=== PATIENT | female | born 1960 | race Caucasian/White ===

== ENCOUNTER → 2017-10-09 | Day surgery (SDC) | payer OTHER, SELFPAY | PROVIDERS: Visit Provider Nurse Anesthetist, Certified Registered | DX: M51.16 Intervertebral disc disorders with radiculopathy, lumbar region (principal); M70.62 Trochanteric bursitis, left hip; M70.61 Trochanteric bursitis, right hip | CPT/HCPCS: 20610; 95991 ==

== ENCOUNTER → 2017-11-02 15:15 | Day surgery (SDC) | payer OTHER, SELFPAY ==
[2017-11-02 15:58] VITALS: BP 191/78; PULSE 64; RESP 20; TEMP 37.1; O2SAT 96; BMI 23.2
--- NOTE | 2017-11-02 16:05 | HMH.PMPROC ---
- Procedure Date: 11/02/17 Time: 16:05 Anesthesiologist:: Levon Patel MD Complications:: None Pre-procedure Diagnosis:: Degenerative disc disease of lumbar spine multiple levels with lumbar radiculopathy symptoms Post-procedure Diagnosis:: same Indications for Procedure:: This patient is a pleasant 57-year-old white female who we are seeing for low back pain with lumbar radicular symptoms. She has an intrathecal morphine/because again pain pump in place. She is currently going at 8.7 mg per day. She is doing well with her pump. However her pain is nearing end of life so she is having some increased pain. She does have an antalgic gait. Motor strength of the lower extremities is 5/5. There is no gross sensory deficit. We will refill her pump and increase her to 9.5 mg per day of intrathecal morphine/bupivacaine. We will also schedule her for pump replacement in the next coming months. She is also on [place] 10 mg 1 tablet 3 times a day along with clonazepam 0.5 mg 3 times a day. She is also on Lyrica 75 mg 3 times a day. We will refill these prescriptions and give her 2 months worth of prescriptions. Her Handy and urine drug screen are all appropriate. Handy #[id number]. Procedure Details:: Informed consent was obtained and the risks and benefits of the procedure was explained to the patient. The patient was taken to the procedure room. The pump was interrogated. The area over the pump was prepped using ChloraPrep. The pump was accessed with a 22-gauge needle. Approximately 9.5 mL's of the intrathecal solution was withdrawn and discarded. The pump was then refilled with 20 mL's of intrathecal morphine 25 mg/mL plus bupivacaine 5 mg per ml. The pump was interrogated and the infusion was increased to 9.5 mg per day. . The patient tolerated the procedure well with no complication. Plan and Disposition:: We will follow-up with her in 2 months. She is also on [place] 10 mg 1 tablet 3 times a day along with clonazepam 0.5 mg 3 times a day. She is also on Lyrica 75 mg 3 times a day. We will refill these prescriptions and give her 2 months worth of prescriptions. Her Handy and urine drug screen are all appropriate. Handy #[id number]. If she has any problems or questions she is to call us in the pain clinic. We will also schedule her to see spend more for pump replacement replacement will most likely be in December.
[2017-11-02 16:10] VITALS: BP 191/78; PULSE 64; RESP 20
[2017-11-02 16:13] VITALS: BP 189/75; PULSE 65; RESP 18
--- NOTE | 2017-11-02 16:14 | P.PCN_ITS ---
- Procedure Date: 11/02/17 Time: 16:05 Anesthesiologist:: Levon Patel MD Complications:: None Pre-procedure Diagnosis:: Degenerative disc disease of lumbar spine multiple levels with lumbar radiculopathy symptoms Post-procedure Diagnosis:: same Indications for Procedure:: This patient is a pleasant 57-year-old white female who we are seeing for low back pain with lumbar radicular symptoms. She has an intrathecal morphine/ because again pain pump in place. She is currently going at 8.7 mg per day. She is doing well with her pump. However her pain is nearing end of life so she is having some increased pain. She does have an antalgic gait. Motor strength of the lower extremities is 5/5. There is no gross sensory deficit. We will refill her pump and increase her to 9.5 mg per day of intrathecal morphine/bupivacaine. We will also schedule her for pump replacement in the next coming months. She is also on [place] 10 mg 1 tablet 3 times a day along with clonazepam 0.5 mg 3 times a day. She is also on Lyrica 75 mg 3 times a day. We will refill these prescriptions and give her 2 months worth of prescriptions. Her Handy and urine drug screen are all appropriate. Handy # [id number]. Procedure Details:: Informed consent was obtained and the risks and benefits of the procedure was explained to the patient. The patient was taken to the procedure room. The pump was interrogated. The area over the pump was prepped using ChloraPrep. The pump was accessed with a 22-gauge needle. Approximately 9.5 mL's of the intrathecal solution was withdrawn and discarded. The pump was then refilled with 20 mL's of intrathecal morphine 25 mg/mL plus bupivacaine 5 mg per ml. The pump was interrogated and the infusion was increased to 9.5 mg per day. . The patient tolerated the procedure well with no complication. Plan and Disposition:: We will follow-up with her in 2 months. She is also on [place] 10 mg 1 tablet 3 times a day along with clonazepam 0.5 mg 3 times a day. She is also on Lyrica 75 mg 3 times a day. We will refill these prescriptions and give her 2 months worth of prescriptions. Her Handy and urine drug screen are all appropriate. Handy #[id number]. If she has any problems or questions she is to call us in the pain clinic. We will also schedule her to see spend more for pump replacement replacement will most likely be in December.
[2017-11-02 16:20] VITALS: BP 189/75; PULSE 70; RESP 18
== END ==
PROVIDERS: Visit Provider Anesthesiology
DX: M51.16 Intervertebral disc disorders with radiculopathy, lumbar region (principal)
CPT/HCPCS: 62370

== ENCOUNTER → 2017-11-25 08:58 | Outpatient (POV) | payer OTHER, SELFPAY ==
--- NOTE | 2017-11-25 11:11 | HMH.PMCON ---
Assessment and Plan (1) Lumbosacral radiculopathy due to degenerative joint disease of spine Current visit: Yes Status: Acute Category: Medical Code(s): M47.27 - Other spondylosis with radiculopathy, lumbosacral region - Assessment and plan all Dx Assessment and Plan for all problems:: Replacement of intrathecal pain pump generator and catheter in the near future HPI - Data of Consult Patient: known to practice within the last 3 years Consult date: 11/25/17 Requesting Physician: Bryn Sanford MD Primary Care Provider: Referral Provider, - Consult Narrative Reason for consult: Degenerative disc disease of the lumbar spine, multiple levels, with lumbar History of present illness: Ms. Akers is a 57 year old female who has had placement of intrathecal pain pump system in the past for back pain. A new pump was placed approximately 7 years ago. She is due a new pump at this time and will also have a new catheter placed at the same setting. CC: Bryn Sanford MD [facility] History Medical History: Denies:: Seizures Other Medical History: Denies: Blood Transfusion Reaction Comment: Illnesses-hypertension, hyperlipidemia, recent NH with placement of stents during angioplasty, cigarette abuse Amputation: No Comment: Placement of intrathecal pain pump in the past, replacement of pain pump generator in the past, angioplasty with stents Review of Systems - Constitutional Comments: Chronic back pain - *Cardiovascular Comments: Recent angioplasty with stents for NH, probably on blood thinner - *Respiratory Comments: COPD - *Musculoskeletal Comments: Chronic back pain - *Neurologic Comments: Degenerative disc disease with radiculopathy Meds Allergies Allergy/AdvReac Type Severity Reaction Status Date / Time No Known Allergies Allergy Unverified 09/29/17 14:21
--- NOTE | 2017-11-25 11:15 | P.CONS_ITS ---
Assessment and Plan (1) Lumbosacral radiculopathy due to degenerative joint disease of spine Current visit: Yes Status: Acute Category: Medical Code(s): M47.27 - Other spondylosis with radiculopathy, lumbosacral region - Assessment and plan all Dx Assessment and Plan for all problems:: Replacement of intrathecal pain pump generator and catheter in the near future HPI - Data of Consult Patient: known to practice within the last 3 years Consult date: 11/25/17 Requesting Physician: Bryn Sanford MD Primary Care Provider: Referral Provider, - Consult Narrative Reason for consult: Degenerative disc disease of the lumbar spine, multiple levels, with lumbar History of present illness: Ms. Akers is a 57 year old female who has had placement of intrathecal pain pump system in the past for back pain. A new pump was placed approximately 7 years ago. She is due a new pump at this time and will also have a new catheter placed at the same setting. CC: Bryn Sanford MD [facility] History Medical History: Denies:: Seizures Other Medical History: Denies: Blood Transfusion Reaction Comment: Illnesses-hypertension, hyperlipidemia, recent [place] with placement of stents during angioplasty, cigarette abuse Amputation: No Comment: Placement of intrathecal pain pump in the past, replacement of pain pump generator in the past, angioplasty with stents Review of Systems - Constitutional Comments: Chronic back pain - *Cardiovascular Comments: Recent angioplasty with stents for [place], probably on blood thinner - *Respiratory Comments: COPD - *Musculoskeletal Comments: Chronic back pain - *Neurologic Comments: Degenerative disc disease with radiculopathy Meds Allergies Allergy/AdvReac Type Severity Reaction Status Date / Time No Known Allergies Allergy Unverified 09/29/17 14:21
[2017-11-25 11:17] VITALS: BP 185/64; PULSE 70; RESP 18; TEMP 37; O2SAT 94
== END ==
PROVIDERS: Visit Provider Surgery
DX: M54.17 Radiculopathy, lumbosacral region (principal)
CPT/HCPCS: 99212

== ENCOUNTER → 2017-11-25 09:00 | Outpatient (POV) | payer OTHER, SELFPAY ==
[2017-11-25 10:30] VITALS: BP 185/64; PULSE 70; RESP 18; TEMP 37; O2SAT 94; BMI 24.2
--- NOTE | 2017-11-25 10:47 | HMH.PMPROC ---
- Procedure Date: 11/25/17 Time: 10:47 Anesthesiologist:: Levon Patel MD Complications:: None Pre-procedure Diagnosis:: Degenerative disc disease of lumbar spine with lumbar radiculopathy symptoms Post-procedure Diagnosis:: same Indications for Procedure:: This patient is a pleasant 57-year-old white female who we have been treating for low back pain with lumbar radiculopathy symptoms. She has an intrathecal morphine/bupivacaine pump in place. She has been having some increasing pain. Her pump is nearing end-of-life. Her estimated RHODA is 9 months. She was also on [place] and clonazepam as well as Lyrica. We did call her in for a pill count and she was taking more than was prescribed so we will discontinue her [place] and clonazepam. She is currently on Lyrica 75 mg 3 times a day. We will consider increasing this to 100 mg times a day. We will also decrease her intrathecal infusion to 6 mg per day and decrease PA boluses to 0.25 mg up to 4 times a day with a 2 hour lockout. She will be due for refill on December 23. She needs pump replacement because of end-of-life of her intrathecal pain pump and we will seek approval for pump replacement on December 23. She does have a catheter that is incompatible with a new Flowonix pump so we will replace her catheter as well. We will plan on pump and catheter replacement on December 23 as well as pump refill at that time. We will refill her with morphine 25 mg per ml as well as bupivacaine 5 mg per ml and continue her at 6 mg per day. Procedure Details:: Informed consent was obtained and the risk and benefits of the procedure was explained to the patient. The patient was taken to the procedure room. The pump was interrogated. Intrathecal morphine/bupivacaine infusion was decreased to 6 mg per day and PA boluses were decreased to 0.25 mg up to 4 times a day. She tolerated the procedure well with no complications. Plan and Disposition:: We will plan on pump and catheter replacement on December 23 as well as pump refill at that time. We will refill her with morphine 25 mg per ml as well as bupivacaine 5 mg per ml and continue her at 6 mg per day. She recently had a heart attack so she needs to be off her blood thinners for a period of time prior to her pump implant.
== END ==
PROVIDERS: Visit Provider Anesthesiology
DX: M54.16 Radiculopathy, lumbar region (principal)
CPT/HCPCS: 62370

== ENCOUNTER 2017-12-23 08:50 | Day surgery (SDC) | payer OTHER, SELFPAY ==
[2017-12-23] VITALS (13 sets, daily range): BP systolic 97–188; BP diastolic 55–111; PULSE 51–67; RESP 15–26; TEMP 36.3–36.6; O2SAT 87–100; BMI 23.8
[2017-12-23 09:57] LABS: Basophils % 0.5 % (0.1-2.0); Eosinophils # 0.1 K/mm3 (0.0-0.4); Eosinophils % 1.9 % (0.1-12.0); Hematocrit 40.4 % (37.0-47.0); Hemoglobin 12.2 g/dL (12.2-16.2); Lymphocytes # 1.5 K/mm3 (0.7-4.5); Lymphocytes % 29.4 K/mm3 (10-50); Mean Corpuscular HGB Conc 30.1 g/dL (31.8-35.4); Mean Corpuscular Volume 89.5 fl (81-99); Mean Platelet Volume 7.8 fl (7.4-10.4); Monocytes # 0.3 K/mm3 (0.1-1.0); Monocytes % 6.1 % (1.7-9.3); Neutrophils # 3.2 K/mm3 (1.8-7.8); Neutrophils % 62.1 % (37.0-80.0); Platelet Count 160 K/mm3 (142-424); Red Blood Count 4.52 M/mm3 (4.20-5.40); Red Cell Distribution Width 14.7 % (11.5-17.5); White Blood Count 5.1 K/mm3 (4.8-10.8)
[2017-12-23 10:04] LABS: Anion Gap 9.1 mEq/L (5-15); Blood Urea Nitrogen 13 mg/dL (7-18); Carbon Dioxide 32 mmol/L (21.0-32.0); Chloride 106 mmol/L (98-107); Creatinine Clearance Estimated 79 mL/min (0-300); Creatinine,Serum 0.66 mg/dL (0.55-1.02); Estimated Glomerular Filt Rate 92 ml/min (>60); GFR (African American) 112 ML/MIN (>60); Glucose 94 mg/dL (74-106); Potassium 4.1 mmoL/L (3.5-5.1); Sodium 143 mmol/L (136-145)
--- NOTE | 2017-12-23 10:08 | P.PN_ITS ---
[facility] Anesthesia Checklist - Patient Identification Patient Identification: Arm Band, Verbal (Name & ) - Structural Data Admitted From: Home Planned Operative Procedure/s: pain pump exchange Consent for Planned Operative Procedure(s) Verified: Yes Verified Documents: Surgical Consent - Chart Verification Results Verified: CBC, BMP - Additional verifications Patient : No Anesthesia Reactions: No Hx Blood Transfusions: No Blood Transfusion Reaction: No Cephalosporin Allergy: No Previous Colonoscopy: No - Cardiovascular Assessment Heart Sounds: S1 & S2 Pulse Strength: Baseline Pulse Rhythm: Regular Peripheral Edema: No - Airway Assessment C-Spine Mobility Assessed: Yes TMJ Mobility Assessed: Yes Dentition: Edentulous - Neurological Assessment Level of Consciousness: Awake, Alert, Appropriate Hx Seizures: No Numbness or tingling in extremities: No - Anesthesia Plan Anesthesia Risk discussed: Yes Anesthesia Plan: Verified ASA Class: III Anesthesia Type: MAC [facility] Anesthesia HX I have reviewed the patient's past medical history: Yes Medical History: Reports:: Anxiety, Coronary Artery Disease, Depression, Hypertension Denies:: Cancer, Diabetes Mellitus Type 1, Diabetes Mellitus Type 2, Internal Pacemaker, MRSA, Seizures Other Medical History: Denies: Blood Transfusion Reaction Other Surgeries: Yes: Coronary Stent, Hysterectomy-Total, Other (choly). No: Pacemaker Amputation: No Fractures: No *Family Hx:: Cancer, Hypertension, Stroke
--- NOTE | 2017-12-23 12:15 | HMH.OPNOTE ---
Date of procedure: 12/23/17 Pre-op Diagnosis:: End of life, pain pump generator Post-op Diagnosis:: Same Procedure performed:: Removal and replacement of pain pump generator Surgeon:: Bryn Sanford MD AMMONIA NITRATE OPERATOR:: Franco Rubin, Jamaal Medina, Blake Aldana, Other Anesthesia: LMA Estimated blood loss (mL): 5 Operative findings:: None Operative note:: Once adequate general anesthesia was obtained the patient was placed on her left side and her back and abdomen were prepped and draped in sterile fashion. Previous incision opened on her right lower quadrant area for which was extracted the old generator. Likewise the Dacron sheath around the pouch was removed from the pocket. The old catheter was ligated with a 0 silk ligature. An incision was then made on the paraspinal area by Dr. Patel through which a new intrathecal catheter was passed into the thecal space to the area desired by Dr. Patel. Catheter was fixed the paraspinal fascia with a fixation device in 2-0 Prolene suture. Utilizing a tunneling device the catheter was passed from the paraspinal incision of the pocket incision. Both wounds were irrigated with antibiotic solution. Catheter was connected to the new generator which is placed in the pocket. Generator sutured to the underlying fascia with 2-0 Prolene suture. CSF was aspirated from the generator noting patency of the system. Subcutaneous tissues closed interrupted stitches of 2-0 Vicryl. Skin closure emergency room 4-0 nylon. Wounds were also localized with 1% Xylocaine with epinephrine. Glue sterile dressings and a binder applied to the patient's wounds. The patient taught procedure well was taken to the recovery room in stable condition. Condition: stable Disposition: PACU Specimens:: None Complications:: None
--- NOTE | 2017-12-23 12:22 | P.OP_ITS ---
Date of procedure: 12/23/17 Pre-op Diagnosis:: Degenerative disc disease of lumbar spine with lumbar radiculopathy symptoms with end-of-life intrathecal pain pump system Post-op Diagnosis:: Same Procedure performed:: Replacement intrathecal catheter for replacement of pain pump system Surgeon:: Levon Patel MD RADIOLOGY SPECIAL PROCEDURE TECH:: Blake Aldana Anesthesia: GETA (With LMA) Estimated blood loss (mL): 5 Clinical Note:: This patient is a pleasant 57-year-old white female who we have been treating for low back pain with lumbar radiculopathy symptoms. She has an intrathecal morphine/bupivacaine pain pump in place. She is having some increasing pain. Her Medtronic pain pump is at end-of-life. Since she is having increasing pain we will replace her entire pain pump system with catheter and new battery. We will replace her with a Flowonix pain pump system and refill her at that time with morphine 25 mg per ml plus bupivacaine 5 mg per ml. Operative findings:: None Operative note:: Informed consent was obtained and the risk and benefits of the procedure was explained to the patient. Patient was taken to the procedure room. She was placed in a left lateral decubitus position. She was prepped and draped in sterile fashion. Dr. Sanford anesthetized incision over the pain pump. He made an incision and explained to the Medtronic pain pump. Catheter was trimmed and tied with silk suture. The mesh pouch was removed. C-arm fluoroscopy was used to view the lumbar spine. I anesthetized the skin and subcutaneous tissues adjacent to the L4-L5 interspace. I made an incision and dissected down to the lumbar paraspinous fascia. A 14-gauge needle was noted and advanced into the L4-5 interspace until clear CSF was obtained. After this intrathecal catheter was inserted and advanced very easily to the T11 vertebral body. The stylette of the catheter and the needle was withdrawn. The catheter was secured to the lumbar paraspinous fascia with an anchoring device in 2-0 Prolene. The catheter was tunneled from the back to the pump pocket and attached to the pump. We were able to freely withdraw clear CSF through the side-port. Both incisions were then closed with 2-0 Vicryl followed by 4-0 nylon. The patient was placed in an abdominal binder and taken to recovery in stable condition. The pump was interrogated and started at 5 mg per day of intrathecal morphine/bupivacaine. We will follow-up with this patient in 2 weeks. We will initiate PTM at that time. If the patient has any side effects or signs or symptoms of oversedation she is to go to the nearest emergency room and also call us in the pain clinic. Condition: stable Disposition: PACU (We will follow-up in 2 weeks.) Complications:: None
--- NOTE | 2017-12-23 12:26 | P.OP_ITS ---
Date of procedure: 12/23/17 Pre-op Diagnosis:: End of life, pain pump generator Post-op Diagnosis:: Same Procedure performed:: Removal and replacement of pain pump generator Surgeon:: Bryn Sanford MD FIRE CONTROL OFFICER:: Franco Rubin, Jamaal Medina, Blake Aldana, Other Anesthesia: LMA Estimated blood loss (mL): 5 Operative findings:: None Operative note:: Once adequate general anesthesia was obtained the patient was placed on her left side and her back and abdomen were prepped and draped in sterile fashion. Previous incision opened on her right lower quadrant area for which was extracted the old generator. Likewise the Dacron sheath around the pouch was removed from the pocket. The old catheter was ligated with a 0 silk ligature. An incision was then made on the paraspinal area by Dr. Patel through which a new intrathecal catheter was passed into the thecal space to the area desired by Dr. Patel. Catheter was fixed the paraspinal fascia with a fixation device in 2- 0 Prolene suture. Utilizing a tunneling device the catheter was passed from the paraspinal incision of the pocket incision. Both wounds were irrigated with antibiotic solution. Catheter was connected to the new generator which is placed in the pocket. Generator sutured to the underlying fascia with 2-0 Prolene suture. CSF was aspirated from the generator noting patency of the system. Subcutaneous tissues closed interrupted stitches of 2-0 Vicryl. Skin closure emergency room 4-0 nylon. Wounds were also localized with 1% Xylocaine with epinephrine. Glue sterile dressings and a binder applied to the patient's wounds. The patient taught procedure well was taken to the recovery room in stable condition. Condition: stable Disposition: PACU Specimens:: None Complications:: None
--- NOTE | 2017-12-23 12:43 | P.PN_ITS ---
[facility] Anesthesia Record Part I Intake, IV Amount: 800 Estimated blood loss (mL): 5 Urine output (mL): 0 Blood Pressure: 97/55 SaO2: 96 Pulse Rate: 67 Respiratory Rate: 16 Temperature: 97.3 F Patient is:: Drowsy, Stable Stable to PACU at:: 12:40
--- NOTE | 2017-12-23 12:43 | P.PN_ITS ---
[facility] Anesthesia Record Part II Discharge Time: 13:10 Destination: [facility] PACU nurse assessment reviewed?: Yes Patient Condition:: Good Anesthesia Complications:: None
--- NOTE | 2017-12-23 12:43 | HMH.ANESII ---
[facility] Anesthesia Record Part II Discharge Time: 13:10 Destination: [facility] PACU nurse assessment reviewed?: Yes Patient Condition:: Good Anesthesia Complications:: None
== END 2017-12-23 14:19 | disposition home or self-care (01) ==
LOC: OR 08:52
PROVIDERS: Visit Provider Anesthesiology
DX: M51.16 Intervertebral disc disorders with radiculopathy, lumbar region (principal)
CPT/HCPCS: 62350; 62362; 80048; 85025; 96374; C1755; C1772; J2405; J3370

== ENCOUNTER → 2018-01-04 11:22 | Outpatient (POV) | payer OTHER, SELFPAY ==
--- NOTE | 2018-01-04 12:01 | HMH.PAINSOAP ---
[facility] Pain Management SOAP Note Subjective:: Patient is a 57-year-old white female who presents today for follow-up after recent replacement of intrathecal pain pump. Patient is being treated for low back pain secondary to degenerative disc disease of the lumbar spine with lumbar radiculopathy. Patient has failed a pill count recently. We will not be making any changes to her pain pump or to current regimen. Patient will be transferring care to Dr. Carver in [place]. Patient currently has a intrathecal pain pump with morphine 25 mg/mL and bupivacaine 5 mg/mL going at a rate of 5 mg a day. Patient also has a PTC of 0.5 mg q. 4 daily with a lockout of 2 hours. Patient denies any side effects. Patient rates her pain a 5 out of 10 today. ROS General: no recent weight change, no fever, no sleep disturbances Respiratory: no cough, no shortness of air, no recurring pulmonary infections Cardiovascular/Peripheral Vascular: No chest pain, No palpitations, no edema, no shortness of breath. Gastrointestinal: no incontinence, normal bowel movements reported Genitourinary: no incontinence Musculoskeletal: Back pain Psychiatric: normal mood/ affect Neurological: [denies weakness in extremities], [denies balance issues] Objective:: Physical Exam General: Alert and oriented x3, no acute distress, pleasant and cooperative, [on room air] Lungs: Resps E/U, Symmetrical chest expansion, Eyes: PERRL Musculoskeletal: Flexion and extension of lumbar spine somewhat guarded secondary to pain, deep tendon reflexes normal, strength in upper and lower extremities [5/5], normal gait noted Neurological: speech clear, archival records clerk equal, no gross sensory deficits Assessment:: Degenerative disc disease of lumbar spine with lumbar radiculopathy symptoms Plan:: We will set up a tentative 2 month appointment. We will contact Dr. Carver office and determine where we are in the referral process. The patient's pain pump infusion will remain the same. This note was dictated using voice recognition software may contain errors or omissions
--- NOTE | 2018-01-04 12:06 | P.CONS_ITS ---
[facility] Pain Management SOAP Note Subjective:: Patient is a 57-year-old white female who presents today for follow-up after recent replacement of intrathecal pain pump. Patient is being treated for low back pain secondary to degenerative disc disease of the lumbar spine with lumbar radiculopathy. Patient has failed a pill count recently. We will not be making any changes to her pain pump or to current regimen. Patient will be transferring care to Dr. Carver in [place]. Patient currently has a intrathecal pain pump with morphine 25 mg/mL and bupivacaine 5 mg/mL going at a rate of 5 mg a day. Patient also has a PTC of 0.5 mg q. 4 daily with a lockout of 2 hours. Patient denies any side effects. Patient rates her pain a 5 out of 10 today. ROS General: no recent weight change, no fever, no sleep disturbances Respiratory: no cough, no shortness of air, no recurring pulmonary infections Cardiovascular/Peripheral Vascular: No chest pain, No palpitations, no edema, no shortness of breath. Gastrointestinal: no incontinence, normal bowel movements reported Genitourinary: no incontinence Musculoskeletal: Back pain Psychiatric: normal mood/ affect Neurological: [denies weakness in extremities], [denies balance issues] Objective:: Physical Exam General: Alert and oriented x3, no acute distress, pleasant and cooperative, [ on room air] Lungs: Resps E/U, Symmetrical chest expansion, Eyes: PERRL Musculoskeletal: Flexion and extension of lumbar spine somewhat guarded secondary to pain, deep tendon reflexes normal, strength in upper and lower extremities [5/5], normal gait noted Neurological: speech clear, transcripter equal, no gross sensory deficits Assessment:: Degenerative disc disease of lumbar spine with lumbar radiculopathy symptoms Plan:: We will set up a tentative 2 month appointment. We will contact Dr. Carver office and determine where we are in the referral process. The patient's pain pump infusion will remain the same. This note was dictated using voice recognition software may contain errors or omissions
[2018-01-04 12:20] VITALS: BP 167/82; PULSE 74; RESP 18; TEMP 36.6; O2SAT 96; BMI 22.2
== END ==
PROVIDERS: Visit Provider Clinical Nurse Specialist Family Health
DX: M54.16 Radiculopathy, lumbar region (principal)
CPT/HCPCS: 99212